=== PATIENT | male | born 1965 | race American Indian/Alaskan Native ===

== ENCOUNTER 2017-09-14 12:28 | Emergency (ER) | payer MEDICARE ==
[2017-09-14 13:11] VITALS: BP 104/60
--- NOTE | 2017-09-14 14:01 | XRay Report ---
XRAY RIGHT KNEE 3 THREE VIEWS: 09/14/17 12:28:00 CLINICAL: Fall and right knee pain. FINDINGS: No fracture or dislocation. The joint spaces are normal. No joint effusion. Calcification at the insertion of the medial collateral ligament. IMPRESSION: No apparent traumatic injury.
--- NOTE | 2017-09-14 14:01 | XRay Report ---
XRAY LEFT KNEE 3 VIEWS: 09/14/17 12:28:00 CLINICAL: Fall and knee pain. FINDINGS: No fracture or dislocation. The joint spaces are normal. No joint effusion. The soft tissues are normal. IMPRESSION: Normal.
--- NOTE | 2017-09-14 14:34 | Emergency Department Report ---
ED Extremity Problem HPI - General Chief complaint: Extremity Injury, Lower Stated complaint: BILATERAL KNEE PAIN Source: patient Mode of arrival: Ambulatory Limitations: No Limitations - History of Present Illness Initial comments: Mr. Conteh is a very pleasant 51-year-old male with history of HIV, COPD renal cancer hepatitis C seizures who presents with bilateral knee pain. The pain has been present for several months. He stated with rest the knee pain resolved. However he's had frequent falls. The pain recurred. With mild swelling. At rest currently denies any pain. No previous history of trauma otherwise. No direct force to the knees. No previous history of degenerative joint disease. MD Complaint: extremity pain, extremity swelling -: Gradual, month(s) (several months) Location: other (bilateral knee) -: Yes arthralgia Radiation: none Quality: aching Consistency: now resolved Improves with: rest Worsens with: weight bearing - Related Data Home Medications Medication Instructions Recorded Confirmed Last Taken Darunavir [Prezista] 800 mg PO QDAY 02/08/15 02/17/15 02/08/15 Emtricitabin/Tenofovir [TRUVADA 1 tab PO QDAY 02/08/15 02/17/15 02/08/15 200-300 mg] Gabapentin [Neurontin] 300 mg PO TID 02/08/15 02/17/15 02/08/15 Metoprolol [Lopressor TAB] 25 mg PO DAILY 02/08/15 02/17/15 02/08/15 Raltegravir Potassium [Isentress] 400 mg PO BID 02/08/15 02/17/15 02/08/15 Ritonavir [Norvir] 100 mg PO DAILY 02/08/15 02/17/15 02/08/15 ALBUTEROL Inhaler [ProAir HFA 2 puff IH QID PRN 02/17/15 02/17/15 Unknown Inhaler] Citalopram [Celexa] 20 mg PO QDAY 02/17/15 02/17/15 Unknown Losartan [Cozaar] 25 mg PO QDAY 02/17/15 02/17/15 Unknown Quetiapine Fumarate [Seroquel] 100 mg PO QHS 02/17/15 02/17/15 Unknown Previous Rx's Medication Instructions Recorded Last Taken Type Aspirin [Aspirin TAB] 325 mg PO QDAY #30 tablet 02/21/15 Unknown Rx HYDROcodone/APAP 5-325 [[place] 1 each PO Q6HR PRN #10 tablet 09/14/17 Unknown Rx 5/325] Allergies Allergy/AdvReac Type Severity Reaction Status Date / Time Sulfa (Sulfonamide Allergy Vomiting Verified 02/08/15 13:22 Antibiotics) ED Review of Systems ROS: Stated complaint: BILATERAL KNEE PAIN Other details as noted in HPI Comment: All other systems reviewed and negative Constitutional: denies: chills, fever, malaise Respiratory: denies: cough Cardiovascular: denies: chest pain ED Past Medical Hx - Past Medical History Hx Hypertension: Yes Hx Congestive Heart Failure: Yes Hx Diabetes: No Hx Deep Vein Thrombosis: No Hx Pulmonary Embolism: Yes Hx Renal Disease: Yes Hx of Cancer: Yes (RENAL) Hx Asthma: Yes Hx COPD: Yes Hx HIV: Yes Additional medical history: HEP C. NEUROPATHY. SUBCLAVIAN ANEURYSM. syphillis - Surgical History Additional Surgical History: PARTIAL LEFT KIDNEY REMOVAL. RIGHT KIDNEY SURGERY - Social History Smoking Status: Current Every Day Smoker Substance Use Type: Alcohol - Medications Home Medications: Home Medications Medication Instructions Recorded Confirmed Last Taken Type Darunavir [Prezista] 800 mg PO QDAY 02/08/15 02/17/15 02/08/15 History Emtricitabin/Tenofovir [TRUVADA 1 tab PO QDAY 02/08/15 02/17/15 02/08/15 History 200-300 mg] Gabapentin [Neurontin] 300 mg PO TID 02/08/15 02/17/15 02/08/15 History Metoprolol [Lopressor TAB] 25 mg PO DAILY 02/08/15 02/17/15 02/08/15 History Raltegravir Potassium [Isentress] 400 mg PO BID 02/08/15 02/17/15 02/08/15 History Ritonavir [Norvir] 100 mg PO DAILY 02/08/15 02/17/15 02/08/15 History ALBUTEROL Inhaler [ProAir HFA 2 puff IH QID PRN 02/17/15 02/17/15 Unknown History Inhaler] Citalopram [Celexa] 20 mg PO QDAY 02/17/15 02/17/15 Unknown History Losartan [Cozaar] 25 mg PO QDAY 02/17/15 02/17/15 Unknown History Quetiapine Fumarate [Seroquel] 100 mg PO QHS 02/17/15 02/17/15 Unknown History Aspirin [Aspirin TAB] 325 mg PO QDAY #30 tablet 02/21/15 Unknown Rx HYDROcodone/APAP 5-325 [[place] 1 each PO Q6HR PRN #10 tablet 09/14/17 Unknown Rx 5/325] ED Physical Exam - General Limitations: No Limitations General appearance: alert, in no apparent distress - Head Head exam: Present: atraumatic, normocephalic - Eye Eye exam: Present: normal appearance - ENT ENT exam: Present: mucous membranes moist - Neck Neck exam: Present: normal inspection - Respiratory Respiratory exam: Present: normal lung sounds bilaterally. Absent: respiratory distress, wheezes, rales, rhonchi - Cardiovascular Cardiovascular Exam: Present: regular rate, normal rhythm, normal heart sounds. Absent: systolic murmur, diastolic murmur, rubs, gallop - GI/Abdominal GI/Abdominal exam: Present: soft, normal bowel sounds. Absent: distended, tenderness, guarding, rebound - Rectal Rectal exam: Present: deferred - Extremities Exam Extremities exam: Present: other (bilateral knees: Full range of motion no warmth no tenderness mild amount of edema and minimal joint effusion) - Back Exam Back exam: Present: normal inspection - Neurological Exam Neurological exam: Present: alert, oriented X3 - Psychiatric Psychiatric exam: Present: normal affect, normal mood - Skin Skin exam: Present: warm, dry, intact, normal color. Absent: rash ED Course Vital Signs 09/14/17 13:04 Temperature 98.7 F Pulse Rate 86 Respiratory 20 Rate Blood Pressure 104/60 O2 Sat by Pulse 88 Oximetry ED Medical Decision Making - Medical Decision Making Mr. Conteh presents with bilateral knee swelling and pain. Suspect element of degenerative joint disease. I reviewed the radiology report of bilateral knee radiographs. Also reviewed images. No indication of DVT, septic arthritis, fracture. No history of direct trauma. Referred to orthopedic surgeon and primary care physician. Prescription for [place] given for pain. With history of chronic kidney disease and diuretic use, he is not a candidate for NSAID therapy. Critical care attestation.: If time is entered above; I have spent that time in minutes in the direct care of this critically ill patient, excluding procedure time. ED Disposition Clinical Impression: Bilateral knee pain, DJD (degenerative joint disease) of knee Disposition: DC- TO HOME OR SELFCARE Is pt being admited?: No Does the pt Need Aspirin: No Condition: Stable Instructions: Osteoarthritis (ED), Knee Pain (ED), Arthralgia (ED), Knee Exercises (GEN) Prescriptions: HYDROcodone/APAP 5-325 [[place] 5/325] 1 each PO Q6HR PRN #10 tablet PRN Reason: Pain Referrals: JUHI RIVERA MD [Staff Physician] - 3-5 Days Time of Disposition: 14:46
== END 2017-09-14 15:52 | disposition home or self-care (01) ==
LOC: ED 12:28
DX: M17.0 Bilateral primary osteoarthritis of knee (principal); J44.9 Chronic obstructive pulmonary disease, unspecified; I12.9 Hypertensive chronic kidney disease with stage 1 through stage 4 chronic kidney disease, or unspecified chronic kidney disease; N18.9 Chronic kidney disease, unspecified; F17.200 Nicotine dependence, unspecified, uncomplicated; Z86.19 Personal history of other infectious and parasitic diseases; Z79.82 Long term (current) use of aspirin; Z88.2 Allergy status to sulfonamides; Z86.711 Personal history of pulmonary embolism

== ENCOUNTER 2017-09-21 23:56 | Emergency (ER) | payer MEDICARE ==
[2017-09-22 01:45] LABS: Calcium 8.9 mg/dL (8.4-10.2)
[2017-09-22 01:49] LABS: Bilirubin,Urine NEG (Negative); Blood,Urine SM (Negative); Color,Urine Yellow (Yellow); Mucus,Urine FEW /HPF
[2017-09-22 01:54] LABS: Basophils % (Auto) 0.4 % (0.0-1.8); Eosinophils # (Auto) 0.2 K/mm3 (0.0-0.4); Hematocrit 41.3 % (35.5-45.6); Hemoglobin 12.8 gm/dl (11.8-15.2); Lymphocytes # (Auto) 3.9 K/mm3 (1.2-5.4); Mean Corpuscular HGB Conc 31 % (32-34); Mean Corpuscular Volume 78 fl (84-94); Monocytes # (Auto) 0.7 K/mm3 (0.0-0.8); Monocytes % (Auto) 8.8 % (0.0-7.3); Platelet Count 218 K/mm3 (140-440); Red Blood Count 5.29 M/mm3 (3.65-5.03); Red Cell Distribution Width 17.7 % (13.2-15.2)
[2017-09-22 01:56] LABS: Mean Corpuscular Hemoglobin 24 pg (28-32)
[2017-09-22 01:57] LABS: Amphetamine Screen,Urine PRESUMPTIVE NEGATIVE; Benzodiazepines Screen,Urine PRESUMPTIVE NEGATIVE; Cannabinoid Screen,Urine PRESUMPTIVE NEGATIVE; Methadone Screen,Urine PRESUMPTIVE NEGATIVE; Opiate Screen,Urine PRESUMPTIVE NEGATIVE
[2017-09-22 02:10] LABS: Cocaine Screen,Urine PRESUMPTIVE POSITIVE
--- NOTE | 2017-09-22 13:49 | Emergency Department Report ---
HPI - General Chief Complaint: Medical Clearance Time Seen by Provider: 09/22/17 13:33 - HPI HPI: Room 4 The patient is a 51-year-old male presenting with the chief complaint suicidal ideation. The patient walked into a hospital for suicidal ideation with subsequent sent to the ED for medical clearance prior to psychiatric admission. The patient states for 2.5 weeks has had suicidal ideation but has not attempted to harm himself. The patient states his plan was to overdose on medication. When asked how he is feeling otherwise the patient states he feels "pretty good." Patient denies any other complaints. Patient states he was told last CD4 count was "good." Location: Mental state Duration: 2.5 weeks Quality: Suicidal Severity: Severe Modifying factors: [see above] Context: [see above] Mode of transportation: [not driving] ED Past Medical Hx - Past Medical History Hx Hypertension: Yes Hx Congestive Heart Failure: Yes Hx Pulmonary Embolism: Yes Hx Renal Disease: Yes Hx Psychiatric Treatment: Yes (Depression) Hx Asthma: Yes Hx COPD: Yes Hx HIV: Yes Additional medical history: HEP C. NEUROPATHY. SUBCLAVIAN ANEURYSM. syphillis - Surgical History Additional Surgical History: PARTIAL LEFT KIDNEY REMOVAL. RIGHT KIDNEY SURGERY - Family History Family history: no significant - Social History Smoking Status: Current Every Day Smoker Substance Use Type: None - Medications Home Medications: Home Medications Medication Instructions Recorded Confirmed Last Taken Type Darunavir [Prezista] 800 mg PO QDAY 02/08/15 02/17/15 02/08/15 History Emtricitabin/Tenofovir [TRUVADA 1 tab PO QDAY 02/08/15 02/17/15 02/08/15 History 200-300 mg] Gabapentin [Neurontin] 300 mg PO TID 02/08/15 02/17/15 02/08/15 History Metoprolol [Lopressor TAB] 25 mg PO DAILY 02/08/15 02/17/15 02/08/15 History Raltegravir Potassium [Isentress] 400 mg PO BID 02/08/15 02/17/15 02/08/15 History Ritonavir [Norvir] 100 mg PO DAILY 02/08/15 02/17/15 02/08/15 History ALBUTEROL Inhaler [ProAir HFA 2 puff IH QID PRN 02/17/15 02/17/15 Unknown History Inhaler] Citalopram [Celexa] 20 mg PO QDAY 02/17/15 02/17/15 Unknown History Losartan [Cozaar] 25 mg PO QDAY 02/17/15 02/17/15 Unknown History Quetiapine Fumarate [Seroquel] 100 mg PO QHS 02/17/15 02/17/15 Unknown History Aspirin [Aspirin TAB] 325 mg PO QDAY #30 tablet 02/21/15 Unknown Rx HYDROcodone/APAP 5-325 [[place] 1 each PO Q6HR PRN #10 tablet 09/14/17 Unknown Rx 5/325] ED Review of Systems ROS: Stated complaint: MEDICAL CLEARANCE Other details as noted in HPI Psychiatric: suicidal thoughts Physical Exam - Physical Exam Vital Signs: Vital Signs 09/22/17 00:27 Temperature 97.7 F Pulse Rate 91 H Respiratory 16 Rate Blood Pressure 111/71 O2 Sat by Pulse 98 Oximetry Physical Exam: GENERAL: The patient is well-developed well-nourished male sitting on stretcher not appearing to be in acute distress. [] HEENT: Normocephalic. Atraumatic. Extraocular motions are intact. Patient has moist mucous membranes. NECK: Supple. No meningitic signs are noted. There is no nuchal rigidity CHEST/LUNGS: Clear to auscultation. There is no respiratory distress noted. HEART/CARDIOVASCULAR: Regular. There is no tachycardia. There is no gallop rub or murmur. ABDOMEN: Abdomen is soft, nontender. Patient has normal bowel sounds. There is no abdominal distention. SKIN: There is no rash. There is no edema. There is no diaphoresis. NEURO: The patient is awake, alert, and oriented. The patient is cooperative. The patient has normal speech MUSCULOSKELETAL: There is no evidence of acute injury. ED Course Vital Signs 09/22/17 00:27 Temperature 97.7 F Pulse Rate 91 H Respiratory 16 Rate Blood Pressure 111/71 O2 Sat by Pulse 98 Oximetry - Consultations Consultation #1: 09/22/17 13:52 Situation briefly discuss with [employer] consultant (Lisseth)-states patient may be sent directly to [facility] ED Medical Decision Making - Lab Data Result diagrams: 09/22/17 00:46 09/22/17 00:46 Laboratory Tests 09/22/17 09/22/17 09/22/17 00:46 00:46 00:46 WBC RBC Hgb Hct MCV MCH MCHC RDW Plt Count Lymph % (Auto) [place] % (Auto) Eos % (Auto) Baso % (Auto) Lymph # [place] # Eos # Baso # Seg Neutrophils % Seg Neutrophils # Sodium 145 Potassium 4.2 Chloride 101.9 Carbon Dioxide 28 Anion Gap 19 BUN 43 H Creatinine 1.5 Estimated GFR 60 BUN/Creatinine Ratio 29 Glucose 92 Calcium 8.9 Total Creatine Kinase Urine Color Urine Turbidity Urine pH Ur Specific [place] Urine Protein Urine Glucose (UA) Urine Ketones Urine Blood Urine Nitrite Urine Bilirubin Urine Urobilinogen Ur Leukocyte Esterase Urine WBC (Auto) Urine RBC (Auto) U Epithel Cells (Auto) Urine Mucus Salicylates < 0.3 L Urine Opiates Screen Urine Methadone Screen Acetaminophen < 5.0 L Ur Barbiturates Screen Ur Phencyclidine Scrn Ur Amphetamines Screen U Benzodiazepines Scrn Urine Cocaine Screen U Marijuana (THC) Screen Drugs of Abuse Note Plasma/Serum Alcohol 09/22/17 09/22/17 09/22/17 00:46 00:46 00:46 WBC 7.9 RBC 5.29 H Hgb 12.8 Hct 41.3 MCV 78 L MCH 24 L MCHC 31 L RDW 17.7 H Plt Count 218 Lymph % (Auto) 49.0 H [place] % (Auto) 8.8 H Eos % (Auto) 2.0 Baso % (Auto) 0.4 Lymph # 3.9 [place] # 0.7 Eos # 0.2 Baso # 0.0 Seg Neutrophils % 39.8 L Seg Neutrophils # 3.1 Sodium Potassium Chloride Carbon Dioxide Anion Gap BUN Creatinine Estimated GFR BUN/Creatinine Ratio Glucose Calcium Total Creatine Kinase 288 H Urine Color Urine Turbidity Urine pH Ur Specific [place] Urine Protein Urine Glucose (UA) Urine Ketones Urine Blood Urine Nitrite Urine Bilirubin Urine Urobilinogen Ur Leukocyte Esterase Urine WBC (Auto) Urine RBC (Auto) U Epithel Cells (Auto) Urine Mucus Salicylates Urine Opiates Screen Urine Methadone Screen Acetaminophen Ur Barbiturates Screen Ur Phencyclidine Scrn Ur Amphetamines Screen U Benzodiazepines Scrn Urine Cocaine Screen U Marijuana (THC) Screen Drugs of Abuse Note Plasma/Serum Alcohol < 0.01 09/22/17 09/22/17 00:49 00:49 WBC RBC Hgb Hct MCV MCH MCHC RDW Plt Count Lymph % (Auto) [place] % (Auto) Eos % (Auto) Baso % (Auto) Lymph # [place] # Eos # Baso # Seg Neutrophils % Seg Neutrophils # Sodium Potassium Chloride Carbon Dioxide Anion Gap BUN Creatinine Estimated GFR BUN/Creatinine Ratio Glucose Calcium Total Creatine Kinase Urine Color Yellow Urine Turbidity Clear Urine pH 5.0 Ur Specific [place] 1.016 Urine Protein 30 mg/dl Urine Glucose (UA) Neg Urine Ketones Neg Urine Blood Sm Urine Nitrite Neg Urine Bilirubin Neg Urine Urobilinogen 4.0 Ur Leukocyte Esterase Neg Urine WBC (Auto) 1.0 Urine RBC (Auto) 4.0 U Epithel Cells (Auto) < 1.0 Urine Mucus Few Salicylates Urine Opiates Screen Presumptive negative Urine Methadone Screen Presumptive negative Acetaminophen Ur Barbiturates Screen Presumptive negative Ur Phencyclidine Scrn Presumptive negative Ur Amphetamines Screen Presumptive negative U Benzodiazepines Scrn Presumptive negative Urine Cocaine Screen Presumptive positive U Marijuana (THC) Screen Presumptive negative Drugs of Abuse Note Disclamer Plasma/Serum Alcohol - Differential Diagnosis suicidal ideation Critical care attestation.: If time is entered above; I have spent that time in minutes in the direct care of this critically ill patient, excluding procedure time. ED Disposition Clinical Impression: Suicidal ideation, Cocaine use Disposition: DC/TX-65 PSY HOSP/PSY UNIT Is pt being admited?: No Does the pt Need Aspirin: No Condition: Serious Referrals: TOMASZ HENRIQUEZ MD [Primary Care Provider] - 3-5 Days Time of Disposition: 14:47 (awaiting transport)
[2017-09-22 21:36] VITALS: BP 106/70
== END 2017-09-22 21:39 ==
LOC: ED 23:56
DX: F32.9 Major depressive disorder, single episode, unspecified (principal); F14.90 Cocaine use, unspecified, uncomplicated; I11.0 Hypertensive heart disease with heart failure; I50.9 Heart failure, unspecified; J44.9 Chronic obstructive pulmonary disease, unspecified; F17.200 Nicotine dependence, unspecified, uncomplicated
CPT/HCPCS: 36415; 80048; 80307; 81001; 82550; 85025; 99284; G0480; 80320

== ENCOUNTER 2017-10-06 03:41 | Emergency (ER) | payer MEDICARE ==
--- NOTE | 2017-10-06 08:42 | Emergency Department Report ---
ED Extremity Problem HPI - General Chief complaint: Extremity Problem,Nontraumatic Stated complaint: BILATERAL KNEE PAIN Time Seen by Provider: 10/06/17 08:10 Source: patient Mode of arrival: Ambulatory Limitations: No Limitations - History of Present Illness Initial comments: 51-year-old male past medical history COPD on home oxygen, hypertension, gout, seizure disorder, CHF, HIV, hepatitis C, renal carcinoma, left kidney nephrectomy presents with acute on chronic bilateral knee pain. Patient denies any recent falls, denies fever or chills. Patient is ambulatory without assistance. Patient states that he is experiencing acute on chronic knee pain. States that he was diagnosed with gout a few months ago. Patient states that this episode has been intermittent for one month. Bilateral knees affected. States that he is wary of taking NSAIDs secondary to his long-standing history of chronic kidney disease. Patient also states that he is living in a drug rehabilitation facility and that he cannot take narcotics on an ongoing basis. Patient states he does have a primary care physician. Patient states he has had x-rays of both of his knees in the past. MD Complaint: extremity pain Onset/Timin -: month(s) Location: bilateral lower extremity -: Yes arthralgia Severity scale (0 -10): 5 Quality: aching Consistency: intermittent - Related Data Home Medications Medication Instructions Recorded Confirmed Last Taken Darunavir [Prezista] 800 mg PO QDAY 02/08/15 02/17/15 02/08/15 Emtricitabin/Tenofovir [TRUVADA 1 tab PO QDAY 02/08/15 02/17/15 02/08/15 200-300 mg] Gabapentin [Neurontin] 300 mg PO TID 02/08/15 02/17/15 02/08/15 Metoprolol [Lopressor TAB] 25 mg PO DAILY 02/08/15 02/17/15 02/08/15 Raltegravir Potassium [Isentress] 400 mg PO BID 02/08/15 02/17/15 02/08/15 Ritonavir [Norvir] 100 mg PO DAILY 02/08/15 02/17/15 02/08/15 ALBUTEROL Inhaler [ProAir HFA 2 puff IH QID PRN 02/17/15 02/17/15 Unknown Inhaler] Citalopram [Celexa] 20 mg PO QDAY 02/17/15 02/17/15 Unknown Losartan [Cozaar] 25 mg PO QDAY 02/17/15 02/17/15 Unknown Quetiapine Fumarate [Seroquel] 100 mg PO QHS 02/17/15 02/17/15 Unknown Previous Rx's Medication Instructions Recorded Last Taken Type Aspirin [Aspirin TAB] 325 mg PO QDAY #30 tablet 02/21/15 Unknown Rx HYDROcodone/APAP 5-325 [[place] 1 each PO Q6HR PRN #10 tablet 09/14/17 Unknown Rx 5/325] Acetaminophen [Acetaminophen TAB] 500 mg PO Q6HR PRN #20 tablet 10/06/17 Unknown Rx Allergies Allergy/AdvReac Type Severity Reaction Status Date / Time Sulfa (Sulfonamide Allergy Vomiting Verified 02/08/15 13:22 Antibiotics) ED Review of Systems ROS: Stated complaint: BILATERAL KNEE PAIN Other details as noted in HPI Constitutional: denies: chills, fever Eyes: denies: eye pain, eye discharge, vision change ENT: denies: ear pain, throat pain Respiratory: denies: cough, shortness of breath, wheezing Cardiovascular: denies: chest pain, palpitations Endocrine: no symptoms reported Gastrointestinal: denies: abdominal pain, nausea, diarrhea Genitourinary: denies: urgency, dysuria Musculoskeletal: arthralgia (intermittent bilateral knee pain for over one month ). denies: back pain, joint swelling Skin: denies: rash, lesions Neurological: denies: headache, weakness, paresthesias Psychiatric: denies: anxiety, depression Hematological/Lymphatic: denies: easy bleeding, easy bruising ED Past Medical Hx - Past Medical History Previous Medical History?: Yes Hx Hypertension: Yes Hx Congestive Heart Failure: Yes Hx Pulmonary Embolism: Yes Hx Renal Disease: Yes Hx Psychiatric Treatment: Yes (Depression) Hx Asthma: Yes Hx COPD: Yes Hx HIV: Yes Additional medical history: HEP C. NEUROPATHY. SUBCLAVIAN ANEURYSM. syphillis. emphysema - Surgical History Past Surgical History?: Yes Additional Surgical History: L KIDNEY REMOVAL 2000. R KIDNEY laparoscopy 2009 - Social History Smoking Status: Current Every Day Smoker Substance Use Type: Alcohol - Medications Home Medications: Home Medications Medication Instructions Recorded Confirmed Last Taken Type Darunavir [Prezista] 800 mg PO QDAY 02/08/15 02/17/15 02/08/15 History Emtricitabin/Tenofovir [TRUVADA 1 tab PO QDAY 02/08/15 02/17/15 02/08/15 History 200-300 mg] Gabapentin [Neurontin] 300 mg PO TID 02/08/15 02/17/15 02/08/15 History Metoprolol [Lopressor TAB] 25 mg PO DAILY 02/08/15 02/17/15 02/08/15 History Raltegravir Potassium [Isentress] 400 mg PO BID 02/08/15 02/17/15 02/08/15 History Ritonavir [Norvir] 100 mg PO DAILY 02/08/15 02/17/15 02/08/15 History ALBUTEROL Inhaler [ProAir HFA 2 puff IH QID PRN 02/17/15 02/17/15 Unknown History Inhaler] Citalopram [Celexa] 20 mg PO QDAY 02/17/15 02/17/15 Unknown History Losartan [Cozaar] 25 mg PO QDAY 02/17/15 02/17/15 Unknown History Quetiapine Fumarate [Seroquel] 100 mg PO QHS 02/17/15 02/17/15 Unknown History Aspirin [Aspirin TAB] 325 mg PO QDAY #30 tablet 02/21/15 Unknown Rx HYDROcodone/APAP 5-325 [[place] 1 each PO Q6HR PRN #10 tablet 09/14/17 Unknown Rx 5/325] Acetaminophen [Acetaminophen TAB] 500 mg PO Q6HR PRN #20 tablet 10/06/17 Unknown Rx ED Physical Exam - General Limitations: No Limitations General appearance: alert, in no apparent distress - Head Head exam: Present: atraumatic, normocephalic - Eye Eye exam: Present: normal appearance - ENT ENT exam: Present: mucous membranes moist - Neck Neck exam: Present: normal inspection - Respiratory Respiratory exam: Present: normal lung sounds bilaterally. Absent: respiratory distress - Cardiovascular Cardiovascular Exam: Present: regular rate, normal rhythm. Absent: systolic murmur, diastolic murmur, rubs, gallop - GI/Abdominal GI/Abdominal exam: Present: soft, normal bowel sounds - Rectal Rectal exam: Present: deferred - Extremities Exam Extremities exam: Present: normal inspection, other (distal dorsalis pedis and posterior tibial pulses intact in both legs) - Back Exam Back exam: Present: normal inspection - Neurological Exam Neurological exam: Present: alert, oriented X3, CN II-XII intact, normal gait - Expanded Neurological Exam Expanded Patient oriented to: Present: person, place, time Cranial nerves: EOM's Intact: Normal Sensory exam: Upper Extremity Light Touch: Normal, Lower Extremity Light Touch: Normal Motor strength exam: RUE: 5, LUE: 5, RLE: 5, LLE: 5 DTR: knee (R): 3+, knee (L): 3+ Best Eye Response ([place]): (4) open spontaneously Best Motor Response ([place]): (6) obeys commands Best Verbal Response ([place]): (5) oriented [place] Total: 15 - Psychiatric Psychiatric exam: Present: normal affect, normal mood - Skin Skin exam: Present: warm, dry, intact, normal color. Absent: rash ED Course Vital Signs 10/06/17 03:50 Temperature 98.2 F Pulse Rate 93 H Respiratory 16 Rate Blood Pressure 113/74 O2 Sat by Pulse 94 Oximetry ED Medical Decision Making - Lab Data Result diagrams: 10/06/17 09:07 - Medical Decision Making A/P: Acute on chronic bilateral knee pain, possible gout flare 1-no external sings of cellulitis, ROM both knee intact to flexion and extension on exam b/l. patient is HIV positive will refrain from giving him prednisone as this may compromise his immune system further 2-as patient has a history of chronic kidney disease I checked patient's renal function today. Creatinine 1.3. Will refrain from providing NSAIDs at this time indicate any renal dysfunction or potential NSAID-induced injury 3-as liver function tests are not significantly abnormal give patient prescription for extra strength acetaminophen. Patient is requesting that I do not give him a prescription for narcotics as this may interfere with his current living facilities' regulations. 4-patient states he already had imaging done of his knees within the last 2 months. xrays of both knees on 09/14/17 were unremarkable 5- follow-up with primary care and pain management Critical care attestation.: If time is entered above; I have spent that time in minutes in the direct care of this critically ill patient, excluding procedure time. ED Disposition Clinical Impression: Bilateral knee pain Qualifiers: Chronicity: acute Qualified Code(s): M25.561 - Pain in right knee; M25.562 - Pain in left knee Disposition: DC-01 TO HOME OR SELFCARE Is pt being admited?: No Does the pt Need Aspirin: No Condition: Stable Instructions: Arthralgia (ED) Prescriptions: Acetaminophen [Acetaminophen TAB] 500 mg PO Q6HR PRN #20 tablet PRN Reason: Pain Referrals: SUSAN MARIE MD [Primary Care Provider] - 3-5 Days PIERCE GARRIDO MD [Referring] - 3-5 Days Forms: Work/School Release Form(ED) Time of Disposition: 09:58
[2017-10-06] MEDS ORDERED: NORCO 5/325 PO ONE (08:48)
[2017-10-06 09:39] LABS: Alanine Aminotransferase 16 units/L (7-56); Albumin 3.6 g/dL (3.9-5); BUN/Creatinine Ratio 22; Bilirubin,Direct 0.4 mg/dL (0-0.2); Blood Urea Nitrogen 28 mg/dL (9-20); Calcium 9.3 mg/dL (8.4-10.2); Hemolysis Index 5
[2017-10-06 10:10] VITALS: BP 129/95
== END 2017-10-06 10:05 | disposition home or self-care (01) ==
LOC: ED 03:41
DX: M25.561 Pain in right knee (principal); M25.562 Pain in left knee; J44.9 Chronic obstructive pulmonary disease, unspecified; M10.9 Gout, unspecified; G40.909 Epilepsy, unspecified, not intractable, without status epilepticus; I13.0 Hypertensive heart and chronic kidney disease with heart failure and stage 1 through stage 4 chronic kidney disease, or unspecified chronic kidney disease; F17.200 Nicotine dependence, unspecified, uncomplicated; F32.9 Major depressive disorder, single episode, unspecified; Z86.711 Personal history of pulmonary embolism; Z86.19 Personal history of other infectious and parasitic diseases; Z79.82 Long term (current) use of aspirin; Z88.2 Allergy status to sulfonamides
CPT/HCPCS: 36415; 80048; 80074; 99283

== ENCOUNTER 2017-10-16 18:37 | Inpatient (IN) | payer MEDICARE ==
[2017-10-16 20:22] LABS: Basophils # (Auto) 0.1 K/mm3 (0.0-0.1); Basophils % (Auto) 0.8 % (0.0-1.8); Eosinophils # (Auto) 0.5 K/mm3 (0.0-0.4); Eosinophils % (Auto) 7.8 % (0.0-4.3); Hematocrit 37.2 % (35.5-45.6); Hemoglobin 11.6 gm/dl (11.8-15.2); Lymphocytes # (Auto) 2.8 K/mm3 (1.2-5.4); Mean Corpuscular HGB Conc 31 % (32-34); Mean Corpuscular Volume 77 fl (84-94); Monocytes # (Auto) 0.6 K/mm3 (0.0-0.8); Monocytes % (Auto) 8.6 % (0.0-7.3); Platelet Count 157 K/mm3 (140-440); Red Blood Count 4.81 M/mm3 (3.65-5.03); Red Cell Distribution Width 17.1 % (13.2-15.2)
[2017-10-16 20:30] LABS: Mean Corpuscular Hemoglobin 24 pg (28-32)
[2017-10-16 20:32] LABS: Calcium 8.4 mg/dL (8.4-10.2)
[2017-10-16] MEDS ORDERED: ATROVENT IH ONE ×2 (20:47→22:52)
[2017-10-16] MEDS ORDERED: XOPENEX IH ONE ×2 (20:47→22:51)
[2017-10-16] MEDS ORDERED: LASIX IV ONE (20:47)
--- NOTE | 2017-10-16 20:51 | Emergency Department Report ---
ED Shortness of Breath HPI - General Chief Complaint: Dyspnea/Respdistress Stated Complaint: SHORTNESS OF BREATH Time Seen by Provider: 10/16/17 20:39 Source: patient Mode of arrival: Ambulatory Limitations: No Limitations - History of Present Illness Initial Comments: Patient is 51 years old male with history of congestive heart failure, COPD and HIV. Patient presented to the ER complaining OF shortness of breath and difficulty breathing for the last 3 days. Patient denied any fever or cough. Patient denied any nausea or vomiting. MD Complaint: shortness of breath, cough -: days(s) Known History Of: COPD, congestive heart failure - Related Data Home Medications Medication Instructions Recorded Confirmed Last Taken Darunavir [Prezista] 800 mg PO QDAY 02/08/15 02/17/15 02/08/15 Emtricitabin/Tenofovir [TRUVADA 1 tab PO QDAY 02/08/15 02/17/15 02/08/15 200-300 mg] Gabapentin [Neurontin] 300 mg PO TID 02/08/15 02/17/15 02/08/15 Metoprolol [Lopressor TAB] 25 mg PO DAILY 02/08/15 02/17/15 02/08/15 Raltegravir Potassium [Isentress] 400 mg PO BID 02/08/15 02/17/15 02/08/15 Ritonavir [Norvir] 100 mg PO DAILY 02/08/15 02/17/15 02/08/15 ALBUTEROL Inhaler [ProAir HFA 2 puff IH QID PRN 02/17/15 02/17/15 Unknown Inhaler] Citalopram [Celexa] 20 mg PO QDAY 02/17/15 02/17/15 Unknown Losartan [Cozaar] 25 mg PO QDAY 02/17/15 02/17/15 Unknown Quetiapine Fumarate [Seroquel] 100 mg PO QHS 02/17/15 02/17/15 Unknown Previous Rx's Medication Instructions Recorded Last Taken Type Aspirin [Aspirin TAB] 325 mg PO QDAY #30 tablet 02/21/15 Unknown Rx HYDROcodone/APAP 5-325 [[place] 1 each PO Q6HR PRN #10 tablet 09/14/17 Unknown Rx 5/325] Acetaminophen [Acetaminophen TAB] 500 mg PO Q6HR PRN #20 tablet 10/06/17 Unknown Rx Allergies Allergy/AdvReac Type Severity Reaction Status Date / Time Sulfa (Sulfonamide Allergy Vomiting Verified 02/08/15 13:22 Antibiotics) ED Review of Systems ROS: Stated complaint: SHORTNESS OF BREATH Other details as noted in HPI Comment: All other systems reviewed and negative Constitutional: denies: chills, fever Respiratory: orthopnea, shortness of breath, SOB with exertion, SOB at rest, wheezing. denies: cough Cardiovascular: denies: chest pain, palpitations, dyspnea on exertion Gastrointestinal: denies: abdominal pain, nausea, vomiting, diarrhea, constipation, hematemesis, melena, hematochezia Musculoskeletal: denies: back pain, joint swelling Neurological: denies: headache, weakness, numbness, paresthesias, confusion ED Past Medical Hx - Past Medical History Previous Medical History?: Yes Hx Hypertension: Yes Hx Congestive Heart Failure: Yes Hx Pulmonary Embolism: Yes Hx Renal Disease: Yes Hx Psychiatric Treatment: Yes (Depression) Hx Asthma: Yes Hx COPD: Yes Hx HIV: Yes Additional medical history: HEP C. NEUROPATHY. SUBCLAVIAN ANEURYSM. syphillis. emphysema - Surgical History Past Surgical History?: Yes Additional Surgical History: L KIDNEY REMOVAL 2000. R KIDNEY laparoscopy 2009 - Social History Smoking Status: Never Smoker Substance Use Type: None - Medications Home Medications: Home Medications Medication Instructions Recorded Confirmed Last Taken Type Darunavir [Prezista] 800 mg PO QDAY 02/08/15 02/17/15 02/08/15 History Emtricitabin/Tenofovir [TRUVADA 1 tab PO QDAY 02/08/15 02/17/15 02/08/15 History 200-300 mg] Gabapentin [Neurontin] 300 mg PO TID 02/08/15 02/17/15 02/08/15 History Metoprolol [Lopressor TAB] 25 mg PO DAILY 02/08/15 02/17/15 02/08/15 History Raltegravir Potassium [Isentress] 400 mg PO BID 02/08/15 02/17/15 02/08/15 History Ritonavir [Norvir] 100 mg PO DAILY 02/08/15 02/17/15 02/08/15 History ALBUTEROL Inhaler [ProAir HFA 2 puff IH QID PRN 02/17/15 02/17/15 Unknown History Inhaler] Citalopram [Celexa] 20 mg PO QDAY 02/17/15 02/17/15 Unknown History Losartan [Cozaar] 25 mg PO QDAY 02/17/15 02/17/15 Unknown History Quetiapine Fumarate [Seroquel] 100 mg PO QHS 02/17/15 02/17/15 Unknown History Aspirin [Aspirin TAB] 325 mg PO QDAY #30 tablet 02/21/15 Unknown Rx HYDROcodone/APAP 5-325 [[place] 1 each PO Q6HR PRN #10 tablet 09/14/17 Unknown Rx 5/325] Acetaminophen [Acetaminophen TAB] 500 mg PO Q6HR PRN #20 tablet 10/06/17 Unknown Rx ED Physical Exam - General Limitations: No Limitations General appearance: alert, in no apparent distress - Head Head exam: Present: atraumatic, normocephalic, normal inspection - Eye Eye exam: Present: normal appearance, PERRL - ENT ENT exam: Present: normal exam, normal orophraynx, mucous membranes moist - Neck Neck exam: Present: normal inspection, full ROM. Absent: tenderness, meningismus, lymphadenopathy, thyromegaly - Respiratory Respiratory exam: Present: wheezes, rales. Absent: respiratory distress, rhonchi, stridor, accessory muscle use, decreased breath sounds, prolonged expiratory - Cardiovascular Cardiovascular Exam: Present: regular rate, normal rhythm, normal heart sounds - GI/Abdominal GI/Abdominal exam: Present: soft, normal bowel sounds. Absent: distended, tenderness, guarding, rebound, rigid, organomegaly, mass, bruit, pulsatile mass , hernia - Extremities Exam Extremities exam: Present: normal inspection, full ROM, normal capillary refill - Back Exam Back exam: Present: normal inspection, full ROM. Absent: tenderness, CVA tenderness (R), CVA tenderness (L), muscle spasm, paraspinal tenderness, vertebral tenderness - Neurological Exam Neurological exam: Present: alert, oriented X3, CN II-XII intact, normal gait - Skin Skin exam: Present: warm, intact, normal color ED Course Vital Signs 10/16/17 10/16/17 10/16/17 19:17 20:19 22:55 Temperature 98.5 F 98.7 F Pulse Rate 91 H 88 Pulse Rate [ 89 Anterior Bilateral Throughout] Respiratory 19 19 Rate Respiratory 18 Rate [Anterior Bilateral Throughout] Blood Pressure 125/82 Blood Pressure 123/77 [Left] O2 Sat by Pulse 94 89 Oximetry 10/16/17 23:03 Temperature Pulse Rate Pulse Rate [ 90 Anterior Bilateral Throughout] Respiratory Rate Respiratory 18 Rate [Anterior Bilateral Throughout] Blood Pressure Blood Pressure [Left] O2 Sat by Pulse Oximetry ED Medical Decision Making - Lab Data Result diagrams: 10/16/17 19:52 10/16/17 19:52 - EKG Data -: EKG Interpreted by [facility] EKG shows normal: sinus rhythm Rate: normal - EKG Data Interpretation: no acute changes - Radiology Data Radiology results: report reviewed Referring Physician: MARQUIS ALEJO Patient Name: ALY PATEL Date of : 1965 Sex: Male Report Date: 2017-10-16 Report Status: Finalized Findings [address] [address] XRay Report Signed Patient: ALY PATEL MR#: [id number] : 1965 Acct:[id number] Age/Sex: 51 / M ADM Date: 10/16/17 Loc: ED Attending Dr: Ordering Physician: MARQUIS ALEJO Date of Service: 10/16/17 Procedure(s): XR chest routine 2V Accession Number(s): [id number] cc: MARQUIS ALEJO Fluoro Time In Minutes: FINAL REPORT PROCEDURE: XR CHEST ROUTINE 2V TECHNIQUE: PA and lateral chest radiographs were obtained. CPT 14617 HISTORY: Shortness of breath COMPARISON: No prior studies are available for comparison. FINDINGS: Heart: Moderate enlargement. Mediastinum/Vessels: Normal. Lungs/Pleural space: Lungs are hyperexpanded with flattening of the diaphragm. Interstitial septal and ground-glass opacities of the lungs. Basilar atelectasis.. Bony thorax: There is dextroscoliosis. Other: IMPRESSION: COPD with interstitial edema or infiltrates. Transcribed By: JULIETA Dictated By: MARLIN CHANDLER MD Electronically Authenticated By: MARLIN CHANDLER MD Signed Date/Time: 10/16/172111 DD/ 11 TD/TT: 10/16/172111 - Medical Decision Making I discussed the patient is Dr. Nwozu, he agreed to admit the patient to service and he advised to bridge the patient to telemetry bed. Critical care attestation.: If time is entered above; I have spent that time in minutes in the direct care of this critically ill patient, excluding procedure time. ED Disposition Clinical Impression: CHF exacerbation, COPD exacerbation, Pneumonia Disposition: OP ADMIT IP TO THIS HOSP Is pt being admited?: Yes Condition: Stable Instructions: Chronic Obstructive Pulmonary Disease (ED), Bacterial Pneumonia ( ED) Referrals: TOMASZ HENRIQUEZ MD [Staff Physician] - 3-5 Days
--- NOTE | 2017-10-16 21:18 | XRay Report ---
FINAL REPORT PROCEDURE: XR CHEST ROUTINE 2V TECHNIQUE: PA and lateral chest radiographs were obtained. CPT 18915 HISTORY: Shortness of breath COMPARISON: No prior studies are available for comparison. FINDINGS: Heart: Moderate enlargement. Mediastinum/Vessels: Normal. Lungs/Pleural space: Lungs are hyperexpanded with flattening of the diaphragm. Interstitial septal and ground-glass opacities of the lungs. Basilar atelectasis.. Bony thorax: There is dextroscoliosis. Other: IMPRESSION: COPD with interstitial edema or infiltrates.
[2017-10-16] MEDS: ZOSYN/NS 3.375GM/50ML 3.375 GM/50 ML BAG IV SCH (22:31)
[2017-10-17] MEDS ORDERED: PROVENTIL IH PRN (01:54)
[2017-10-17] MEDS ORDERED: TYLENOL PO PRN (01:56)
[2017-10-17] MEDS ORDERED: NORCO 5/325 PO PRN (01:59)
[2017-10-17] MEDS: NITRO-BID 2% TP SCH ×4 (02:18→18:56)
[2017-10-17] MEDS ORDERED: HEPARIN ONE (02:20)
[2017-10-17] MEDS: HEPARIN SUB-Q SCH ×3 (02:30→21:28)
[2017-10-17] MEDS: ZOSYN/NS 3.375GM/50ML 3.375 GM/50 ML BAG IV SCH ×3 (05:25→19:00)
--- NOTE | 2017-10-17 06:19 | History and Physical Report ---
CHIEF COMPLAINT: Shortness of breath. HISTORY OF PRESENT ILLNESS: The patient is a 51-year-old male with past history of congestive heart failure, COPD and HIV, presenting with shortness of breath going on for about 3 days. There is no history of chest pain. No history of fever or chills. The patient also denies history of nausea or vomiting and presented to the Emergency Room. PAST MEDICAL HISTORY: Pertinent for hypertension, congestive heart failure, pulmonary embolism, renal insufficiency, depression, asthma, COPD, HIV infection, hepatitis C virus infection, neuropathy, subclavian vessel aneurysm, syphilis, emphysema. PAST SURGICAL HISTORY: Pertinent for left kidney removal or nephrectomy in 2000 and right kidney laparoscopy in 2009. FAMILY HISTORY: Noncontributory. SOCIAL HISTORY: The patient does not smoke, does not drink alcohol and does not use illicit drugs. MEDICATIONS: The patient is on the following medications: Prezista or darunavir 800 mg by mouth daily, Truvada 200/300 mg 1 by mouth daily, gabapentin 300 mg by mouth 3 times daily, Lopressor 25 mg by mouth daily. Raltegravir potassium 400 mg by mouth twice daily, ritonavir or Norvir 100 mg by mouth daily, albuterol inhaler 2 puffs inhalation q.i.d., Celexa 20 mg by mouth daily, Cozaar 25 mg by mouth daily, quetiapine fumarate 100 mg by mouth at bedtime, aspirin 325 mg by mouth daily, [place] 5/325 mg 1 by mouth every 6 hours as needed for pain, and Tylenol 500 mg every 6 hours as needed for fever and headache. ALLERGIES: THE PATIENT IS ALLERGIC TO SULFA DRUGS. REVIEW OF SYSTEMS: CONSTITUTIONAL: There is no fever, no chills, no diaphoresis. HEENT: There is no headache or sore throat. CARDIOVASCULAR SYSTEM: There is no chest pain or orthopnea. RESPIRATORY SYSTEM: Shortness of breath is present. No cough. GASTROINTESTINAL SYSTEM: There is no nausea, no vomiting, no abdominal pain, diarrhea or constipation. NEUROLOGICAL SYSTEM: There is no numbness, no dizziness, no altered mental status. MUSCULOSKELETAL SYSTEM: There is no joint pain or joint swelling. DERMATOLOGIC SYSTEM: There is no skin rash or itching. GENITOURINARY SYSTEM: There is no dysuria, hematuria or flank pain. Rest of system review is normal. PHYSICAL EXAMINATION: GENERAL: At the time of exam, the patient was found to be alert, oriented to person, place and time, and not in acute distress. VITAL SIGNS: Showed normal temperature with a pulse of 80, respirations 18, blood pressure 113/59, and O2 sat of 98% on room air. HEENT: Showed pupils to be equal, round, and reactive to light and accommodation. Extraocular muscles are intact. NECK: Supple with no JVD or carotid bruits. CARDIOVASCULAR SYSTEM: Showed normal first and second heart sounds, with no gallops or murmur. RESPIRATORY SYSTEM: Showed good air entry on both sides of the lung with bilateral scattered crackles. GASTROINTESTINAL SYSTEM: Showed abdomen to be full, soft, nontender with no organomegaly or rigidity. NEUROLOGICAL: Showed no focal deficit. MUSCULOSKELETAL SYSTEM: Showed no joint swelling or tenderness. DERMATOLOGICAL SYSTEM: Showed no skin rash. GENITOURINARY SYSTEM: Showing no costovertebral angle tenderness. PERTINENT LABORATORY AND IMAGING STUDIES: IMAGING STUDIES: The patient had CBC done with normal white count, slightly low hemoglobin of 11.6, normal hematocrit with low MCV of 77. CBC differential showed elevated lymphocyte count of 41% and monocyte count of 8.6% with high eosinophil count of 7.8%. Chemistry showed elevated BUN of 25 with elevated brain natriuretic peptide of 1261. IMAGING STUDIES: The patient has chest x-ray done that shows evidence of COPD with interstitial edema as well as infiltrate. DIAGNOSES: 1. Congestive heart failure exacerbation. 2. Chronic obstructive pulmonary disease exacerbation. 3. Right lower lobe pneumonia. 4. Human immunodeficiency virus infection. PLAN: The patient will be admitted to medical floor on telemetry and for the management of CHF, the patient will have 2D echo done this morning. We will have also cardiac enzymes checked q.6 hours x 2 more levels. The patient will be on IV Lasix 40 mg daily. For COPD exacerbation, the patient will be on albuterol nebulizer q.6 hours as needed for shortness of breath and will be on IV Zosyn 3.375 g q.6 hours. Also for COPD sedation, the patient will be on IV Solu-Medrol 16 mg every 8 hours. For management of pneumonia, the patient will be treated using the same IV Zosyn 3.375 g q.6 hours, and the patient will be on Tylenol 650 mg every 4 hours as needed for fever and headache. The patient will also be on aspirin 325 mg by mouth daily. The patient will also be placed on nitro paste half inch to anterior chest wall 3 times daily and will be on his home medications as shown in the medication reconciliation section and this will include his HIV medications as taken at home prior to admission. JOB# [id number] [facility]/MEÑO MELARA
[2017-10-17 08:04] LABS: Creatine Kinase MB 1.2 ng/mL (0.0-4.0)
[2017-10-17] MEDS: NEURONTIN PO SCH ×3 (08:42→19:50)
[2017-10-17] MEDS ORDERED: NON-FORMULARY (Emtricitabin/Tenofovir [Truvada 200-300 Mg] 1 TAB) PO SCH (10:00)
[2017-10-17] MEDS ORDERED: cefTRIAXone 1 GM in NACL 0.9% 20 ML IV SCH (10:00)
[2017-10-17] MEDS ORDERED: ZITHROMAX 500 MG in NACL 0.9% 250ML 250 ML IV SCH (10:00)
[2017-10-17] MEDS: EMTRIVA PO SCH (10:00)
[2017-10-17] MEDS: VIREAD PO SCH (10:00)
[2017-10-17] MEDS: LASIX IV SCH (10:07)
[2017-10-17] MEDS: celeXA PO SCH (10:08)
[2017-10-17] MEDS: ASPIRIN PO SCH (10:08)
[2017-10-17] MEDS: PREZISTA PO SCH (10:09)
--- NOTE | 2017-10-17 14:08 | Event Note ---
Date: 10/17/17 Patient with COPD , CHF exacerbation , lung infiltrate. I have seen and examined him. Continue current medications.
[2017-10-17 16:11] LABS: Creatine Kinase MB < 1.0 ng/mL (0.0-4.0)
[2017-10-18] MEDS: ZOSYN/NS 3.375GM/50ML 3.375 GM/50 ML BAG IV SCH ×2 (01:19→06:03)
[2017-10-18 04:25] VITALS: BP 148/68
[2017-10-18] MEDS: NITRO-BID 2% TP SCH (06:01)
[2017-10-18] MEDS ORDERED: DUONEB *Not for PRN Use IH SCH (08:00)
[2017-10-18] MEDS: celeXA PO SCH (09:10)
[2017-10-18] MEDS: EMTRIVA PO SCH (09:10)
[2017-10-18] MEDS: NEURONTIN PO SCH (09:10)
[2017-10-18] MEDS: ASPIRIN PO SCH (09:10)
[2017-10-18] MEDS: PREZISTA PO SCH (09:11)
[2017-10-18] MEDS: HEPARIN SUB-Q SCH (09:12)
[2017-10-18] MEDS: VIREAD PO SCH (09:12)
[2017-10-18] MEDS: LASIX IV SCH (09:13)
--- NOTE | 2017-10-18 10:32 | Consultation ---
History of Present Illness Consult date: 10/18/17 Consult reason: shortness of breath History of present illness: Patient is 51 years old male with history of congestive heart failure, COPD and HIV. Patient presented to the ER complaining OF shortness of breath and difficulty breathing for the last 3 days. Patient denied any fever or cough. Patient denied any nausea or vomiting. Past History Past Medical History: arthritis, COPD, heart failure, HIV/AIDS, hypertension, liver disease, PVD Past Surgical History: Other (Nephrectomy) Social history: no significant social history Family history: no significant family history Medications and Allergies Allergies Allergy/AdvReac Type Severity Reaction Status Date / Time Sulfa (Sulfonamide Allergy Vomiting Verified 02/08/15 13:22 Antibiotics) Home Medications Medication Instructions Recorded Confirmed Last Taken Type Darunavir [Prezista] 800 mg PO QDAY 02/08/15 10/17/17 1 Day Ago History ~10/16/17 Emtricitabin/Tenofovir [TRUVADA 1 tab PO QDAY 02/08/15 10/17/17 1 Day Ago History 200-300 mg] ~10/16/17 Gabapentin [Neurontin] 300 mg PO TID 02/08/15 10/17/17 1 Day Ago History ~10/16/17 Metoprolol [Lopressor TAB] 25 mg PO DAILY 02/08/15 10/17/17 1 Day Ago History ~10/16/17 Raltegravir Potassium [Isentress] 400 mg PO BID 02/08/15 10/17/17 1 Day Ago History ~10/16/17 Ritonavir [Norvir] 100 mg PO DAILY 02/08/15 10/17/17 1 Day Ago History ~10/16/17 ALBUTEROL Inhaler [ProAir HFA 2 puff IH QID PRN 02/17/15 10/17/17 1 Day Ago History Inhaler] ~10/16/17 Citalopram [Celexa] 20 mg PO QDAY 02/17/15 10/17/17 1 Day Ago History ~10/16/17 Losartan [Cozaar] 25 mg PO QDAY 02/17/15 10/17/17 1 Day Ago History ~10/16/17 Quetiapine Fumarate [Seroquel] 100 mg PO QHS 02/17/15 10/17/17 1 Day Ago History ~10/16/17 Aspirin [Aspirin TAB] 325 mg PO QDAY #30 tablet 02/21/15 10/17/17 1 Day Ago Rx ~10/16/17 Active Meds: Active Medications Acetaminophen (Tylenol) 650 mg PO Q4H PRN PRN Reason: For Pain/Fever/Headache Last Admin: 10/17/17 23:04 Dose: 650 mg Acetaminophen/Hydrocodone Bitart ([place] 5/325) 1 each PO Q6H PRN PRN Reason: Pain Albuterol (Proventil) 2.5 mg IH Q6HRT PRN PRN Reason: Shortness Of Breath Albuterol/Ipratropium (Duoneb *Not For Prn Use*) 1 ampul IH Q6HRT [facility] Last Admin: 10/18/17 07:49 Dose: 1 ampul Aspirin (Aspirin) 325 mg PO QDAY [facility] Last Admin: 10/18/17 09:10 Dose: 325 mg Citalopram Hydrobromide (Celexa) 20 mg PO QDAY [facility] Last Admin: 10/18/17 09:10 Dose: 20 mg Darunavir (Prezista) 800 mg PO QDAY [facility] Last Admin: 10/18/17 09:11 Dose: 800 mg Emtricitabine (Emtriva) 200 mg PO QDAY [facility] Last Admin: 10/18/17 09:10 Dose: Not Given Furosemide (Lasix) 40 mg IV DAILY [facility] Last Admin: 10/18/17 09:13 Dose: 40 mg Gabapentin (Neurontin) 300 mg PO TID [facility] Last Admin: 10/18/17 09:10 Dose: 300 mg Heparin Sodium (Porcine) (Heparin) 5,000 unit SUB-Q Q12HR [facility] Last Admin: 10/18/17 09:12 Dose: Not Given Piperacillin Sod/Tazobactam Sod (Zosyn/Ns 3.375gm/50ml) 3.375 gm in 50 mls @ 100 mls/hr IV Q6HR [facility] Last Admin: 10/18/17 06:03 Dose: 100 mls/hr Methylprednisolone Sodium Succinate (Solu-Medrol) 60 mg IV Q8H [facility] Last Admin: 10/18/17 06:03 Dose: 60 mg Nitroglycerin (Nitro-Bid 2%) 0.5 inch TP TIDNTG [facility]; Protocol Last Admin: 10/18/17 06:01 Dose: Not Given Tenofovir Disoproxil Fumarate (Viread) 300 mg PO QDAY HENNY Last Admin: 10/18/17 09:12 Dose: 300 mg Review of Systems Constitutional: no weight loss, no weight gain, no anorexia, no fatigue Ears, nose, mouth and throat: no ear pain, no sinus pain, no bleeding gums Cardiovascular: no chest pain, no orthopnea, no edema, no dyspnea on exertion Respiratory: cough, congestion, pleurisy, sleep apnea Gastrointestinal: no abdominal pain, no vomiting, no melena Genitourinary Male: no dysuria, no hematuria, no urinary frequency, no urinary hesitancy Rectal: no pain Musculoskeletal: no neck stiffness, no neck pain Integumentary: no rash, no pruritis Neurological: no parathesias, no numbness, no headaches, no migraines Endocrine: no cold intolerance, no heat intolerance, no polyphagia, no polydipsia, no polyuria Hematologic/Lymphatic: no easy bruising, no easy bleeding Allergic/Immunologic: no urticaria, no wheezing Physical Examination Vital Signs Temp Pulse Resp BP Pulse Ox 98.5 F 91 H 19 125/82 94 10/16/17 19:17 10/16/17 19:17 10/16/17 19:17 10/16/17 19:17 10/16/17 19:17 General appearance: no acute distress, well-nourished HEENT: Positive: PERRL, Mucus Membranes Moist Neck: Positive: neck supple, trachea midline Cardiac: Positive: Reg Rate and Rhythm, S1/S2. Negative: Audible Murmur Lungs: Positive: clear to auscultation, Normal Breath Sounds Neuro: Positive: Grossly Intact Abdomen: Positive: Soft, Active Bowel Sounds. Negative: Tender, Distended Male genitourinary: Positive: normal Skin: Positive: Clear Incision: Cardiac Cath Site Musculoskeletal: No Pain, Normal Range of Motion Extremities: Present: normal. Absent: edema Results 10/16/17 19:52 10/16/17 19:52 Cardiac Enzymes 10/17/17 Range/Units 15:15 CK-MB (CK-2) < 1.0 (0.0-4.0) ng/mL - EKG Interpretation EKG: sinus rhythm EKG interpretations - Telemetry EKG Rhythm: Sinus Rhythm Assessment and Plan 1. Acute decompensated chronic combined systolic and diastolic heart failure 2. Acute exacerbation of COPD 3. Essential hypertension 4. HIV disease 5. Chronic hepatitis C 6. History of pulmonary embolism 7. Chronic kidney disease. Plan. Patient currently stable recommend an echocardiogram to assess right and left ventricular function as well as pulmonary pressures. Resume home medication and antiviral therapy
[2017-10-18] MEDS ORDERED: IMODIUM PO PRN (10:55)
--- NOTE | 2017-10-18 16:36 | Discharge Summary ---
Providers - Providers Date of Admission: 10/17/17 00:20 Date of discharge: 10/18/17 Attending physician: TOMASZ NORIEGA 10/17/17 14:09 Consult to Physician [CONS] Routine Comment: Consulting Provider: MOHAN MYLES Physician Instructions: Reason For Exam: CHF exacerbation Primary care physician: SUSAN MARIE Hospitalization Condition: Stable Disposition: [id number] LEFT AGAINST MED ADVICE Exam - Constitutional Vitals: Temp Pulse Resp BP Pulse Ox 98.3 F 78 18 148/68 97 10/18/17 03:34 10/18/17 10:00 10/18/17 10:00 10/18/17 03:34 10/18/17 10:00 Plan Follow up with: TOMASZ HENRIQUEZ MD [Staff Physician] - 3-5 Days Forms: AMA Form
== END 2017-10-18 13:18 | disposition left against medical advice (07) | DRG 974 ==
LOC: ED 18:37 → 4A 10-17 00:20
PROVIDERS: ADMIT Internal Medicine; ATTEND Internal Medicine
DX: B20 Human immunodeficiency virus [HIV] disease (principal); J18.9 Pneumonia, unspecified organism; I50.43 Acute on chronic combined systolic (congestive) and diastolic (congestive) heart failure; J44.1 Chronic obstructive pulmonary disease with (acute) exacerbation; I13.0 Hypertensive heart and chronic kidney disease with heart failure and stage 1 through stage 4 chronic kidney disease, or unspecified chronic kidney disease; F32.9 Major depressive disorder, single episode, unspecified; M19.90 Unspecified osteoarthritis, unspecified site; I73.9 Peripheral vascular disease, unspecified; B18.2 Chronic viral hepatitis C; N18.9 Chronic kidney disease, unspecified; Z53.21 Procedure and treatment not carried out due to patient leaving prior to being seen by health care provider; Z79.899 Other long term (current) drug therapy; Z88.2 Allergy status to sulfonamides; Z86.711 Personal history of pulmonary embolism; Z79.82 Long term (current) use of aspirin; Z90.5 Acquired absence of kidney
CPT/HCPCS: 36415; 71046; 80048; 82550; 82553; 83880; 84484; 85025; 87040; 93005; 93010; 93306; 94640; 94760; 96374; 96375; J1644; J1940; J2543; J2920; J2930

== ENCOUNTER 2019-08-12 12:05 | Emergency (ER) | payer MEDICARE ==
--- NOTE | 2019-08-12 12:36 | Event Note ---
Date: 08/12/19 Patient presented after possible seizure. He is refusing all medical intervention at this time. He is alert and oriented x3, clinically sober, and exhibits decision-making capacity. He is free from distracting injury. He is awake, alert, oriented, and having a vigorous conversation on her cellular phone. He would not let me physically touch him. I advised the patient that we would recommend a general history and physical examination, screening laboratory studies and imaging studies as directed by the history and physical. The patient is refusing all this. He is alert and oriented, clinically sober, and exhibits decision-making capacity. He is able to articulate risks in his own words. He was counseled to not drive or operate motor vehicles for the next 6 months, he indicates he does not need refills on any of his prescriptions, and he indicates that he will follow-up with his private physician at [place]. The patient was counseled that he may return to the emergency room right away if and when he changes his mind. This entire conversation is witnessed by nurse Pilar Hurley
== END 2019-08-12 13:00 | disposition left against medical advice (07) ==
LOC: ED 12:05
DX: R06.02 Shortness of breath (principal); Z53.21 Procedure and treatment not carried out due to patient leaving prior to being seen by health care provider

== ENCOUNTER 2019-08-12 13:01 | Emergency (ER) | payer MEDICARE ==
--- NOTE | 2019-08-12 14:26 | Emergency Department Report ---
{null, Blank Doc - Documentation Documentation: 53-year-old male that presents with SZ activity and SOB, and hypotensive. [facility] has been taking medications for this. Patient was seen earlier today in the ED and left AMA. This initial assessment/diagnostic orders/clinical plan/treatment(s) is/are subject to change based on patient's health status, clinical progression and re- assessment by fellow clinical providers in the ED. Further treatment and workup at subsequent clinical providers discretion. Patient/guardians urged not to elope from the ED as their condition may be serious if not clinically assessed and managed. Initial orders include: 1- Patient sent to MAIN ED for further evaluation and treatment 2- labs 3- UA 4- O2 }
[2019-08-12 14:28] VITALS: BP 73/39
--- NOTE | 2019-08-12 15:50 | XRay Report ---
{null, CHEST 2 VIEWS INDICATION: Chest Pain. COMPARISON: 10/20/2017 FINDINGS: Support devices: None. Heart: Within normal limits. Lungs/pleura: The lungs are mildly hyperinflated with slightly prominent interstitial markings. No co nsolidation, pleural fluid or pneumothorax. Additional findings: None. IMPRESSION: Mild emphysematous changes. No acute process noted. Signer Name: Francisco Ram Jr, MD Signed: 08/12/2019 3:46 PM Workstation Name: [id number] }
[2019-08-12 16:42] LABS: Basophils # (Auto) 0.1 K/mm3 (0.0-0.1); Basophils % (Auto) 0.8 % (0.0-1.8); Eosinophils # (Auto) 0.2 K/mm3 (0.0-0.4); Eosinophils % (Auto) 2.7 % (0.0-4.3); Hematocrit 33.3 % (35.5-45.6); Hemoglobin 10.3 gm/dl (11.8-15.2); Lymphocytes # (Auto) 2.4 K/mm3 (1.2-5.4); Lymphocytes % (Auto) 39.2 % (13.4-35.0); Mean Corpuscular HGB Conc 31 % (32-34); Mean Corpuscular Volume 78 fl (84-94); Monocytes # (Auto) 0.6 K/mm3 (0.0-0.8); Monocytes % (Auto) 9.6 % (0.0-7.3); Platelet Count 137 K/mm3 (140-440); Red Blood Count 4.27 M/mm3 (3.65-5.03); Red Cell Distribution Width 16.4 % (13.2-15.2)
[2019-08-12 16:51] LABS: INR 1.14 (0.87-1.13)
[2019-08-12 16:52] LABS: Partial Thromboplastin Time 30.9 Sec. (24.2-36.6)
[2019-08-12 16:57] LABS: Alanine Aminotransferase 12 units/L (7-56); Albumin 3.7 g/dL (3.9-5); BUN/Creatinine Ratio 22; Blood Urea Nitrogen 57 mg/dL (9-20); Hemolysis Index 2
== END 2019-08-12 21:32 | disposition left against medical advice (07) ==
LOC: ED 13:01
DX: R56.9 Unspecified convulsions (principal); Z53.21 Procedure and treatment not carried out due to patient leaving prior to being seen by health care provider
CPT/HCPCS: 71046; 80053; 80320; 84484; 85025; 85610; 85730; 93005; 93010; G0480

== ENCOUNTER 2019-08-25 03:39 | Emergency (ER) | payer MEDICARE ==
[2019-08-25 03:45] VITALS: BP 135/86
== END 2019-08-25 09:59 | disposition left against medical advice (07) ==
LOC: ED 03:39
DX: M54.5 Low back pain (principal); Z53.21 Procedure and treatment not carried out due to patient leaving prior to being seen by health care provider